=== PATIENT | male | born 1995 | race Caucasian/White ===

== ENCOUNTER 2021-05-19 09:28 | Day surgery (SDC) | payer BC ==
[2021-05-19] MEDS ORDERED: Ringers Lactate 1,000 ML IV ONE ×2 (09:31→12:23)
[2021-05-19] MEDS: OXYMETAZOLINE HCL 0.05% 15ML NAS ONE ×3 (09:50→11:08)
[2021-05-19] MEDS ORDERED: FENTANYL CITR 100 MCG/2 ML ONE ×2 (09:51→11:12)
[2021-05-19] MEDS ORDERED: propofoL 200 MG/20 ML VIAL IV ONE (09:52)
[2021-05-19] MEDS ORDERED: MIDAZOLAM HCL 2 MG/2 ML INJ ONE (09:52)
[2021-05-19] MEDS ORDERED: LIDOCAINE 1% MPF 5 ML VIAL ONE (09:52)
[2021-05-19] MEDS ORDERED: dexAMETHasone 10 MG/ML VIAL ONE (09:53)
[2021-05-19] MEDS ORDERED: ROCURONIUM 50 MG/5 ML VIAL IV ONE (09:53)
[2021-05-19] MEDS ORDERED: OXYMETAZOLINE HCL 0.05% 15ML NAS ONE ×3 (09:55→10:31)
[2021-05-19] MEDS ORDERED: EPINEPHRINE/PF 1 MG/ML AMP ONE (10:31)
[2021-05-19] MEDS: LIDOCAINE 1% W/EPI 1:100,000 MDV 20 ML VIAL ONE ×2 (10:54→11:15)
[2021-05-19] MEDS ORDERED: GLYCOPYRROLATE 0.2 MG/ML SYR ONE (11:25)
--- NOTE | 2021-05-19 13:26 | P.BOP ---
Preoperative diagnosis: CRS ethmoid/frontal, septal deviation, nasal obstruction Postoperative diagnosis: same Primary procedure: NE with B ant ethmoid and frontal Secondary procedure: septoplasty Image Editor: NONE,NONE Estimated blood loss: 20ml Specimen: sinus contents Anesthesia: General Complications: None Implants: L FR Propel contour, L ethmoid Xerogel, L NC Gonzalez splint Fluids & blood products: crystalloid 1200ml Transferred to: Recovery Room Condition: Good
[2021-05-19] MEDS ORDERED: MEPERIDINE HCL 25 MG/ML SYR ONE (13:45)
[2021-05-19] MEDS ORDERED: MORPHINE 4 MG/ML SYR ONE (14:02)
[2021-05-19 14:13] VITALS: O2SAT 99
[2021-05-19 14:25] VITALS: BP 145/88; TEMP 98.3
[2021-05-19] MEDS ORDERED: TRAMADOL HCL 50 MG TAB ONE (14:30)
--- NOTE | 2021-05-19 22:33 | OP ---
Date of Procedure: 05/19/2021 Surgeon: Sally Saunders MD Garden Equipment Mechanic: None. Preoperative Diagnosis: Chronic frontal and ethmoid sinusitis, septal deviation, nasal obstruction. Postoperative Diagnosis: Chronic frontal and ethmoid sinusitis, septal deviation, nasal obstruction. Procedure: Bilateral nasal endoscopy with frontal sinusotomy, bilateral nasal endoscopy with anterio r ethmoidectomy and septoplasty. Indication For Procedure: Mr. Omer presented to the [facility] with some nasal symptoms. He was tr eated with medical therapy and underwent post treatment CT scanning that demonstrated partial opacifi cation of the anterior ethmoids, frontal recesses with the right milly bullosa including opacificati on and the polypoid appearance to the head of the right middle turbinate and severe left septal spur with deviation. The risks, benefits, and alternatives to the procedure were discussed with the patie nt who agreed to proceed. Description Of Procedure In Detail: The patient was brought to the operating room. He was placed un eileen general anesthesia via oral endotracheal tube. The head of bed was turned 90 degrees. The nasal hairs were trimmed and the nasal cavity was packed with Afrin-soaked pledgets. A 0-degree endoscope was used to perform a nasal endoscopy including photodocumentation of the patient's preoperative fin dings. The left middle turbinate was gently medialized using a [place] and the middle meatus was packe d with Afrin-soaked pledget. After time for effect, it was removed and the uncinate process and supe rior attachments of the middle turbinate were injected with 1% lidocaine with epinephrine. A similar procedure was performed on the right side. A 90-degree Blakesley was used to remove the uncinate pr ocess. The curette was then used to dissect the ethmoid bulla. A straight 45- and 90-degree Blakesl ey were used to remove bony fragments and soft tissue within the anterior ethmoids. Afrin-soaked ple dgets were applied intermittently as needed to aid in hemostasis. The 70-degree endoscope was then u sed for better visualization. The Entellus balloon device was used to aid in identification of the f rontal recess, which was then dilated. The 70-degree endoscope and Giraffe forceps were then used to remove bony fragments in order to provide adequate opening to the frontal sinus. Attention was then turned to the right side where similar procedure was performed. The uncinate process was used with a backbiter and 90-degree Blakesley. The ethmoid cells were carefully dissected using a curette and bony fragments were removed from the anterior ethmoid cavity. In addition, the milly bullosa and po rtion of the middle turbinate were resected in the following manner: A sickle knife was used to inci se through the head of the middle turbinate and the lateral portion of the milly was removed using a Thru-cutting straight and 45-degree Blakesley. The balloon was used in attempt to cannulate the fro ntal recess but this was difficult. Brief intraoperative review of the patient's CT scan demonstrate d the small cell with a very very narrow frontal recess anteriorly, which was partially obstructed by a bony frontal beak. Using a 70-degree endoscope, the frontal curette was used in order to back fra cture this area providing adequate channel for balloon dilation of the device. After dilation, the b one was removed and withdrawn and the 70-degree endoscope with a uheh-yd-elfw small Giraffe forceps w ere used to remove the bony partitions in order to adequately open the frontal recess and prevent res tenosis. Afrin-soaked pledgets were applied to this area. After removal, reinspection revealed adeq uate hemostasis. Brief review of the maxillary sinus revealed some soft tissue bands, which were rem rigo using a 90-degree Blakesley in order to prevent mucus recirculation in this area. Attention was then turned to the septum. The endoscopic instruments were set aside and the septum was addressed u sing a headlight and nasal speculum. The septum was initially injected with 3 mL of 1% lidocaine wit h epinephrine and Afrin-soaked pledgets were packed into the nasal cavity. The pledgets were then re moved and a right hemitransfixion incision was made and the bilateral mucosal flaps were elevated due to the severity of the left septal spur. A laceration was created along the crest of the spur and a dditional dissection was carried out through this laceration in order to push the mucosa inferiorly o ff the bony spur. The bone and cartilage were carefully incised and the deviated portions were remov ed taking care to preserve adequate caudal and cranial aspects of the septum after significant remova l of the bony spur, the endoscope was used to view the posterior aspects of the spur, which were then removed with a Blakesley forceps. Small amount of bone along the inferior aspect was carefully smoo thed using a rasp. This allowed good correction of the septum. The endoscope was then used again to reinspect the sinus cavities and remove all pledgets. A propel steroid eluting stent was placed wit hin the left frontal recess due to some mucosal swelling noted in this area. Due to mild oozing afte r stent placement, the ethmoid cavity was packed with XeroGel dissolvable hemostatic dressing. No pa cking was necessary on the right side. The hemitransfixion incision was then closed using absorbable gut suture. The mucosal flaps were secured in a quilting like fashion. Due to the mucosal lacerati on on the left, decision was made to place a Gonzalez splint in order to provide protection and prevent crusting in this area. The right mucosal surface was packed and decision was made to forego splint p lacement on that side in order to improve ability to perform irrigations and to allow for a right korin al breathing during the early healing. The nasopharynx and oropharynx were suctioned and the patient was returned to care. Gonzalez splint was secured using 4-0 nylon suture to the anterior septum. Afte r suctioning of the naso and oropharynx, the patient was returned to care of Anesthesia for awakening and extubation in the operating room, which proceeded without difficulty. Complications: None. Disposition: The patient will be discharged home later today in the care of his family and follow up with Dr. Saunders in 10 days for splint removal. PATRICIA/ANITA Voice ID: [id number] Report ID: [id number]
== END 2021-05-19 15:06 | disposition home or self-care (01) ==
LOC: OR 09:28
PROVIDERS: ATTEND Otolaryngology
PROC: 09TU8ZZ Resection of Right Ethmoid Sinus, Via Natural or Artificial Opening Endoscopic (ICD-10-PCS; 2021-05-19)
PROC: 09BM8ZZ Excision of Nasal Septum, Via Natural or Artificial Opening Endoscopic (ICD-10-PCS; 2021-05-19)
PROC: 09TV8ZZ Resection of Left Ethmoid Sinus, Via Natural or Artificial Opening Endoscopic (ICD-10-PCS; principal; 2021-05-19 10:45)
DX: J34.2 Deviated nasal septum (principal); J32.1 Chronic frontal sinusitis; J34.89 Other specified disorders of nose and nasal sinuses; Z20.822 Contact with and (suspected) exposure to COVID-19
CPT/HCPCS: 88305; 88311; 31254; 31276; 30520; 30930; U0003; J2704; J2250; J3010 ×2; J1100; J2175; J7120 ×2; J0171